=== PATIENT | female | born 1995 | race Hispanic/Latino ===

== ENCOUNTER 2022-05-20 00:23 | Inpatient (IN) | payer OTHER ==
[~2022-05-20] VITALS: Ht 165.1 cm; Wt 88.5 kg
[2022-05-20] MEDS: LACTATED RINGERS 1000ML 1,000 ML IV SCH ×2 (01:46→02:44)
[2022-05-20 02:21] LABS: APPEARANCE,URINE CLEAR (CLEAR); BILIRUBIN,URINE NEGATIVE (NEGATIVE); COLOR,URINE YELLOW (YELLOW); GLUCOSE, URINE (UA) NEGATIVE (NEGATIVE); KETONES,URINE NEGATIVE (NEGATIVE); LEUKOCYTE ESTERASE ,URINE TRACE (NEGATIVE); NITRATE,URINE NEGATIVE (NEGATIVE); OCCULT BLOOD,URINE TRACE-LYSED (NEGATIVE); PROTEIN,URINE NEGATIVE (NEGATIVE); UROBILINOGEN,URINE 0.2 mg/dL (0.2-1.0)
[2022-05-20 02:27] LABS: AMPHET/METH SCREEN,URINE NEGATIVE (NEGATIVE); BARBITURATE SCREEN, URINE NEGATIVE (NEGATIVE); BENZODIAZEPINES SCREEN,URINE NEGATIVE (NEGATIVE); CANNABINOID SCREEN,URINE NEGATIVE (NEGATIVE); COCAINE SCREEN,URINE NEGATIVE (NEGATIVE); PHENCYCLIDINE SCREEN,URINE NEGATIVE (NEGATIVE)
[2022-05-20 02:41] LABS: BACTERIA,URINE Rare /HPF (None Seen); RBC,URINE 0-1 /HPF (0-1); SQUAMOUS EPITHELIAL CELL,UR 0-2 /HPF (0-2)
[2022-05-20 03:31] LABS: HEMATOCRIT 33.8 % (36-48); MEAN CORPUSCULAR HEMOGLOBIN 27.3 pg (27.0-33.0); MEAN CORPUSCULAR HGB CONC 33.4 g/dL (32.0-36.0); MEAN CORPUSCULAR VOLUME 81.6 fL (79-99); RED BLOOD CELL COUNT(AUTO) 4.14 MIL/uL (4.00-5.50); RED CELL DISTRIBUTION WIDTH 14.4 % (11.0-15.5); WHITE BLOOD COUNT (AUTO) 9.3 K/uL (4.8-10.8)
[2022-05-20 06:36] VITALS: BP 133/72
[2022-05-20] MEDS ORDERED: FOLI5VIA2 IJ (06:36)
[2022-05-20] MEDS ORDERED: OXYTOCIN-LR 20 UNITS/1000 ML 1,000 ML IV SCH (08:30)
[2022-05-20] MEDS ORDERED: LACTATED RINGERS 1000ML 1,000 ML IV PRN (08:30)
[2022-05-20] MEDS ORDERED: NALOXONE HCL 0.4 MG/1 ML ML IV PRN (09:00)
[2022-05-20] MEDS ORDERED: BUTORPHANOL TARTRATE 2 MG/ML IVP PRN (09:00)
[2022-05-20] MEDS ORDERED: LACTATED RINGERS 500 ML 500 ML IV PRN (09:00)
[2022-05-20] MEDS ORDERED: EPHEDRINE SULFATE 50 MG/ML AMPULE IVP PRN ×2 (09:00→17:00)
[2022-05-20] MEDS: CLINDAMYCIN IVPB 600MG/50ML 50 ML IV SCH ×2 (09:34→21:00)
[2022-05-20 10:13] LABS: RAPID PLASMA REAGIN NONREACTIVE (NONREACTIVE)
[2022-05-20] MEDS ORDERED: CLINDAMYCIN IVPB 900MG/50ML 50 ML IV PRN (13:30)
[2022-05-20] MEDS ORDERED: GENTAMICIN SULFATE 240 MG in 0.9%NACL 100ML 100 ML IV PRN (13:30)
[2022-05-20] MEDS ORDERED: CALDOLOR 800MG+NS 250ML 250 ML IV PRN (13:30)
[2022-05-20] MEDS ORDERED: GENTAMICIN 80 MG/NS 100 ML PB 100 ML IV ONE (14:19)
[2022-05-20] MEDS ORDERED: MORPHINE PF 100MG/10ML AMP IV ONE (14:37)
[2022-05-20] MEDS ORDERED: EPHEDRINE SULFATE 50 MG/ML AMPULE ONE (14:54)
[2022-05-20] MEDS ORDERED: OXYTOCIN 10 USP UNITS/ML ONE ×2 (14:59→15:18)
[2022-05-20] MEDS ORDERED: METHYLERGONOVINE MALEATE 0.2 MG/1 ML ML ONE (15:01)
[2022-05-20] MEDS ORDERED: 0.9%NACL 10ML VIAL IVP PRN ×2 (16:00→17:30)
[2022-05-20] MEDS ORDERED: MEPERIDINE-PF 75 MG/ML SYG IM PRN ×2 (16:00→17:30)
[2022-05-20] MEDS ORDERED: ACETAMINOPHEN WITH CODEINE 1 TAB TAB PO PRN (16:00)
[2022-05-20] MEDS ORDERED: ACETAMINOPHEN 500 MG TABLET PO PRN (16:00)
[2022-05-20] MEDS ORDERED: DIPH,PERTUSS(ACELL),TET VAC/PF 0.5 ML VIAL IM SCH (16:00)
[2022-05-20] MEDS ORDERED: LANOLIN 30GM OINTMENT TP PRN (16:00)
[2022-05-20] MEDS ORDERED: PROMETHAZINE HCL 25 MG/ML 1ML AMPULE IM PRN ×2 (16:00→17:30)
[2022-05-20] MEDS ORDERED: HYDROCODONE/ACETAMINOPHEN 5/325 MG TAB PO PRN (16:00)
[2022-05-20] MEDS ORDERED: MEASLES/MUMPS/RUBELLA VACCINE, LIVE 0.5 ML/VIAL SQ SCH (16:00)
[2022-05-20] MEDS ORDERED: BISACODYL 10 MG SUPP.RECT RC PRN (16:00)
[2022-05-20] MEDS ORDERED: OXYTOCIN-LR 20 UNITS/1000 ML 1,000 ML IV PRN ×2 (16:00→17:30)
[2022-05-20] MEDS ORDERED: DIPHENHYDRAMINE HCL 25 MG CAPSULE PO PRN (16:00)
[2022-05-20] MEDS ORDERED: DiphenhydrAMINE HCL 50 MG/ML VIAL IVP PRN (17:00)
[2022-05-20] MEDS ORDERED: ONDANSETRON 4MG INJ IVP PRN (17:00)
[2022-05-20] MEDS ORDERED: NALOXONE HCL 0.4 MG/1 ML ML IVP PRN ×3 (17:00)
[2022-05-20] MEDS ORDERED: DEXTROSE 5 %-0.45 % NACL 1,000 ML IV PRN (17:30)
[2022-05-20 17:45] VITALS: BP 135/76
[2022-05-20 19:15] VITALS: BP 134/73
[2022-05-20] MEDS: DOCUSATE SODIUM 100 MG CAP PO SCH (20:58)
[2022-05-20] MEDS: SIMETHICONE 80 MG TAB.CHEW PO PRN (20:58)
[2022-05-20 22:44] VITALS: BP 115/71
[2022-05-20] MEDS: DEXTROSE 5 %-0.45 % NACL 1,000 ML IV PRN (22:46)
[2022-05-21] MEDS: CALDOLOR 800MG+NS 250ML 250 ML IV SCH ×4 (00:13→09:30)
[2022-05-21 02:58] VITALS: BP 109/58
[2022-05-21] MEDS: DEXTROSE 5 %-0.45 % NACL 1,000 ML IV PRN (06:04)
[2022-05-21 06:51] VITALS: BP 105/57
[2022-05-21] MEDS: IBUPROFEN 800 MG TAB PO SCH ×4 (08:00→18:33)
[2022-05-21] MEDS: DOCUSATE SODIUM 100 MG CAP PO SCH ×2 (08:25→20:21)
[2022-05-21] MEDS: SIMETHICONE 80 MG TAB.CHEW PO PRN ×2 (08:25→18:33)
[2022-05-21] MEDS: LIDOCAINE 5% TOPICAL PATCH TP SCH (08:28)
[2022-05-21 11:40] VITALS: BP 115/60
[2022-05-21 16:15] VITALS: BP 109/66
[2022-05-21 19:43] VITALS: BP 123/74
[2022-05-21 22:45] VITALS: BP 115/67
[2022-05-22] MEDS: IBUPROFEN 800 MG TAB PO SCH ×3 (01:55→09:30)
[2022-05-22 03:04] VITALS: BP 125/77
[2022-05-22 07:19] VITALS: BP 128/77
[2022-05-22] MEDS: SIMETHICONE 80 MG TAB.CHEW PO PRN (07:56)
[2022-05-22] MEDS: DOCUSATE SODIUM 100 MG CAP PO SCH (07:57)
[2022-05-22 11:02] VITALS: BP 115/53
[2022-05-22] MEDS: LIDOCAINE 5% TOPICAL PATCH TP SCH (13:51)
[2022-05-22 16:09] LABS: OPIATES SCREEN URINE Negative ng/mL (Cutoff=300)
== END 2022-05-22 14:00 | disposition home or self-care (01) | DRG 788 ==
LOC: EDH 00:23 → OBSVTOIN 00:24 → LDH 00:24 → WSH 17:45
PROVIDERS: ADMIT Obstetrics & Gynecology; ATTEND Obstetrics & Gynecology
PROC: 3E0234Z Introduction of Serum, Toxoid and Vaccine into Muscle, Percutaneous Approach (ICD-10-PCS; 2022-05-20)
PROC: 10D00Z1 Extraction of Products of Conception, Low, Open Approach (ICD-10-PCS; principal; 2022-05-20 14:29)
DX: O62.2 Other uterine inertia (principal); O41.00X0 Oligohydramnios, unspecified trimester, not applicable or unspecified; O69.81X0 Labor and delivery complicated by cord around neck, without compression, not applicable or unspecified; O99.214 Obesity complicating childbirth; Z37.0 Single live birth; Z3A.39 39 weeks gestation of pregnancy; Z23 Encounter for immunization
CPT/HCPCS: 36415; 76805; 80305; 81001; 85027; 86592; 86701; 86850; 86900; 86901; 87340; 87390; 90707; 90715; A4344; G0378; J1580; J1741; J2210; J2274; J2590; J3490; J7120

== ENCOUNTER 2023-08-02 06:27 | Inpatient (IN) | payer MEDICAID, OTHER ==
[~2023-08-02] VITALS: Ht 170.2 cm; Wt 89.8 kg
[~2023-08-02 06:27] MED LIST: FOLI5VIA2 IJ
[2023-08-02] MEDS ORDERED: LACTATED RINGERS 1000ML IV SCH (07:00)
[2023-08-02 07:19] LABS: AMPHET/METH SCREEN,URINE NEGATIVE (NEGATIVE); BARBITURATE SCREEN, URINE NEGATIVE (NEGATIVE); BENZODIAZEPINES SCREEN,URINE NEGATIVE (NEGATIVE); CANNABINOID SCREEN,URINE NEGATIVE (NEGATIVE); COCAINE SCREEN,URINE NEGATIVE (NEGATIVE); OPIATE SCREEN,URINE NEGATIVE (NEGATIVE); PHENCYCLIDINE SCREEN,URINE NEGATIVE (NEGATIVE)
[2023-08-02 07:38] LABS: APPEARANCE,URINE CLEAR (CLEAR); BILIRUBIN,URINE NEGATIVE (NEGATIVE); COLOR,URINE LIGHT-YELLOW (YELLOW); GLUCOSE, URINE (UA) NEGATIVE (NEGATIVE); KETONES,URINE NEGATIVE (NEGATIVE); LEUKOCYTE ESTERASE ,URINE 250 Leu/uL (NEGATIVE); NITRATE,URINE NEGATIVE (NEGATIVE); OCCULT BLOOD,URINE NEGATIVE (NEGATIVE); PH,URINE 6.5 (5.0-8.0); PROTEIN,URINE NEGATIVE (NEGATIVE); UROBILINOGEN,URINE 0.2 mg/dL (0.2-1.0)
[2023-08-02 07:41] LABS: ADD UA MICROSCOPIC YES
[2023-08-02 07:55] LABS: MUCUS,URINE RARE LPF (None Seen); SQUAMOUS EPITHELIAL CELL,UR RARE /HPF (0-2); WBC,URINE 0-1 /HPF (0-1)
[2023-08-02] MEDS ORDERED: LACTATED RINGERS 1000ML 1,000 ML IV SCH (08:00)
[2023-08-02] MEDS ORDERED: CLINDAMYCIN IVPB 900MG/50ML 50 ML IV PRN (08:00)
[2023-08-02] MEDS ORDERED: GENTAMICIN SULFATE 240 MG in 0.9%NACL 100ML 100 ML IV PRN (08:00)
[2023-08-02 08:02] LABS: HEMATOCRIT 31.1 % (36-48); MEAN CORPUSCULAR HEMOGLOBIN 24.8 pg (27.0-33.0); MEAN CORPUSCULAR HGB CONC 32.2 g/dL (32.0-36.0); MEAN CORPUSCULAR VOLUME 77.2 fL (79-99); PLATELET COUNT (AUTO) 163 K/uL (130-400); RED BLOOD CELL COUNT(AUTO) 4.03 MIL/uL (4.00-5.50); RED CELL DISTRIBUTION WIDTH 15.1 % (11.0-15.5); WHITE BLOOD COUNT (AUTO) 8.5 K/uL (4.8-10.8)
[2023-08-02 09:18] LABS: HIV 1&2 ANTIBODY Non-Reactive (Negative); HIV-1 p24 Antigen Non-Reactive (Negative)
[2023-08-02 13:20] LABS: RAPID PLASMA REAGIN NONREACTIVE (NONREACTIVE)
[2023-08-02] MEDS ORDERED: OXYTOCIN 10 USP UNITS/ML ONE ×2 (17:13→18:06)
[2023-08-02] MEDS ORDERED: ONDANSETRON 4MG INJ ONE (17:13)
[2023-08-02] MEDS ORDERED: OXYTOCIN 10 UNIT/1ML 10ML VIAL ONE (17:13)
[2023-08-02] MEDS ORDERED: MORPHINE PF 100MG/10ML AMP IV ONE (17:13)
[2023-08-02] MEDS ORDERED: DEXAMETHASONE SOD PHOSPHATE 10MG/ML 1ML VIAL ONE (17:13)
[2023-08-02] MEDS ORDERED: FENTANYL CITRATE PF 50 MCG/1 ML 2ML VIAL ONE (17:14)
[2023-08-02] MEDS ORDERED: EPHEDRINE SULFATE 50 MG/ML AMPULE ONE (17:51)
[2023-08-02] MEDS ORDERED: CALDOLOR 800MG+NS 250ML 250 ML IV ONE (18:26)
[2023-08-02] MEDS ORDERED: 0.9%NACL 10ML VIAL IVP PRN (18:30)
[2023-08-02] MEDS ORDERED: MEPERIDINE-PF 75 MG/ML SYG IM PRN (18:30)
[2023-08-02] MEDS ORDERED: PROMETHAZINE HCL 25 MG/ML 1ML AMPULE IM PRN (18:30)
[2023-08-02] MEDS ORDERED: OXYTOCIN-LR 30 UNITS/500ML 500 ML IV PRN (18:30)
[2023-08-02] MEDS ORDERED: DEXTROSE 5 %-0.45 % NACL 1,000 ML IV PRN (18:30)
[2023-08-02 20:55] VITALS: BP 116/64; PULSE 68; RESP 20
[2023-08-02] MEDS ORDERED: HYDROCODONE/ACETAMINOPHEN 5/325 MG TAB PO PRN (21:00)
[2023-08-02] MEDS ORDERED: LANOLIN 30GM OINTMENT TP PRN (21:00)
[2023-08-02] MEDS ORDERED: BISACODYL 10 MG SUPP.RECT RC PRN (21:00)
[2023-08-02] MEDS: DOCUSATE SODIUM 100 MG CAP PO SCH (21:00)
[2023-08-02] MEDS ORDERED: ACETAMINOPHEN 500 MG TABLET PO PRN (21:00)
[2023-08-02 23:50] VITALS: BP 121/61; PULSE 67; RESP 20
[2023-08-03] MEDS: ACETAMINOPHEN WITH CODEINE 1 TAB TAB PO PRN (00:43)
[2023-08-03] MEDS: CALDOLOR 800MG+NS 250ML 250 ML IV SCH ×2 (02:24→09:39)
[2023-08-03 03:00] VITALS: BP 111/55; PULSE 61; RESP 20
[2023-08-03 06:54] LABS: HEMATOCRIT 26.7 % (36-48); MEAN CORPUSCULAR HEMOGLOBIN 24.5 pg (27.0-33.0); MEAN CORPUSCULAR HGB CONC 31.5 g/dL (32.0-36.0); MEAN CORPUSCULAR VOLUME 77.8 fL (79-99); RED BLOOD CELL COUNT(AUTO) 3.43 MIL/uL (4.00-5.50); RED CELL DISTRIBUTION WIDTH 14.6 % (11.0-15.5); WHITE BLOOD COUNT (AUTO) 14.8 K/uL (4.8-10.8)
[2023-08-03 07:40] VITALS: BP 107/69; PULSE 59; RESP 20
[2023-08-03] MEDS: DOCUSATE SODIUM 100 MG CAP PO SCH ×2 (08:42→20:29)
[2023-08-03] MEDS: SIMETHICONE 80 MG TAB.CHEW PO PRN ×2 (08:42→20:29)
[2023-08-03 11:47] VITALS: BP 110/56; PULSE 57; RESP 18
[2023-08-03 16:14] VITALS: BP 100/54; PULSE 53; RESP 18
[2023-08-03] MEDS: IBUPROFEN 600 MG TABLET PO PRN (16:53)
[2023-08-03 19:30] VITALS: BP 109/58; PULSE 69; RESP 20
[2023-08-03 23:15] VITALS: BP_SYST 103; BP_SYST 111; BP_DIAS 55; BP_DIAS 68; PULSE 58; PULSE 76; RESP 18
[2023-08-04 03:25] VITALS: BP 110/58; PULSE 66; RESP 20
[2023-08-04] MEDS: ACETAMINOPHEN WITH CODEINE 1 TAB TAB PO PRN (03:25)
[2023-08-04] MEDS: IBUPROFEN 600 MG TABLET PO PRN ×2 (06:35→12:37)
[2023-08-04 07:29] VITALS: BP 105/54; PULSE 64; RESP 18
[2023-08-04] MEDS: SIMETHICONE 80 MG TAB.CHEW PO PRN (09:45)
[2023-08-04] MEDS: DOCUSATE SODIUM 100 MG CAP PO SCH (09:45)
[2023-08-04 11:14] VITALS: BP 114/64; PULSE 63; RESP 18
[2023-08-04] MEDS ORDERED: FERR-72 PO (13:14)
[2023-08-04] MEDS ORDERED: ACET-2079 PO (13:15)
== END 2023-08-04 14:20 | disposition home or self-care (01) | DRG 788 ==
LOC: EDH 06:27 → LDH 06:48 → INTOOBSV 06:48 → OBSVTOIN 06:48 → WSH 20:40
PROVIDERS: ADMIT Obstetrics & Gynecology; ATTEND Obstetrics & Gynecology
PROC: 10D00Z1 Extraction of Products of Conception, Low, Open Approach (ICD-10-PCS; principal; 2023-08-02 17:00)
DX: O34.211 Maternal care for low transverse scar from previous cesarean delivery (principal); Z37.0 Single live birth; Z3A.38 38 weeks gestation of pregnancy
CPT/HCPCS: 36415; 59510; 80305; 81001; 85027; 86592; 86701; 86850; 86900; 86901; 87088; 87340; 87390; A4344; G0378; J1100; J1741; J2274; J2405; J2590; J3010; J3490; J7120; A4248; L0625

== ENCOUNTER 2023-11-11 01:14 | Inpatient (IN) | payer OTHER ==
[~2023-11-11] VITALS: Ht 170.2 cm; Wt 81.6 kg
[~2023-11-11 01:14] MED LIST changes: +ACET-2079 PO; +FERR-72 PO; -FOLI5VIA2 IJ
[2023-11-11] MEDS: ONDANSETRON ODT 4MG TAB SL ONE (01:25)
[2023-11-11 01:38] LABS: RAPID GROUP A STREP negative (NEGATIVE)
[2023-11-11 01:43] LABS: SARS-CoV-2, RNA, NAAT NEGATIVE SARS CoV-2 (NEGATIVE)
[2023-11-11 01:48] LABS: INFLUENZA TYPE A Negative For Type A (NEGATIVE); INFLUENZA TYPE B Negative For Type B (NEGATIVE)
[2023-11-11 02:09] LABS: BASOPHILS # (AUTO) 0.02 K/uL (0.00-0.20); BASOPHILS % (AUTO) 0.2 % (0.0-5.0); EOSINOPHILS # (AUTO) 0.02 K/uL (0.00-0.70); EOSINOPHILS % (AUTO) 0.2 % (0.0-8.0); HEMATOCRIT 41.7 % (36-48); IMMATURE GRANULOCYTE ABSOLUTE 0.04 K/uL (0-1); LYMPHOCYTES # (AUTO) 1.5 K/uL (1.0-4.8); LYMPHOCYTES % (AUTO) 13.4 % (21.0-51.0); MEAN CORPUSCULAR HEMOGLOBIN 22.1 pg (27.0-33.0); MEAN CORPUSCULAR HGB CONC 30.2 g/dL (32.0-36.0); MEAN CORPUSCULAR VOLUME 73.2 fL (79-99); MONOCYTES # (AUTO) 0.4 K/uL (0.1-1.0); MONOCYTES % (AUTO) 3.6 % (3.0-13.0); NEUTROPHILS # (AUTO) 9.3 K/uL (1.8-7.7); NEUTROPHILS % (AUTO) 82.2 % (40.0-77.0); PLATELET COUNT (AUTO) 229 K/uL (130-400); RED CELL DISTRIBUTION WIDTH 17.3 % (11.0-15.5); WHITE BLOOD COUNT (AUTO) 11.3 K/uL (4.8-10.8)
[2023-11-11 02:19] LABS: APPEARANCE,URINE TURBID (CLEAR); BILIRUBIN,URINE NEGATIVE (NEGATIVE); COLOR,URINE RED (YELLOW); GLUCOSE, URINE (UA) 100 mg/dL (NEGATIVE); KETONES,URINE >=80 mg/dL (NEGATIVE); LEUKOCYTE ESTERASE ,URINE MODERATE Leu/uL (NEGATIVE); NITRATE,URINE POSITIVE (NEGATIVE); OCCULT BLOOD,URINE LARGE (NEGATIVE); PH,URINE 6.5 (5.0-8.0); PROTEIN,URINE >=300 mg/dL (NEGATIVE)
[2023-11-11 02:20] LABS: CREATININE 0.8 mg/dL (0.5-1.5); POTASSIUM 3.8 mmol/L (3.5-5.1)
[2023-11-11 02:26] LABS: ALBUMIN 4.1 g/dL (3.5-5.0); BILIRUBIN,TOTAL 6.3 mg/dL (0.2-1.0); TOTAL PROTEIN, SERUM 7.7 g/dL (6.0-8.3)
[2023-11-11 02:31] LABS: ADD UA MICROSCOPIC YES
[2023-11-11 02:33] LABS: RBC,URINE TNTC /HPF (0-1)
[2023-11-11 02:35] LABS: WBC,URINE 51-100 /HPF (0-1)
[2023-11-11 02:36] LABS: BACTERIA,URINE Rare /HPF (None Seen); SQUAMOUS EPITHELIAL CELL,UR Few /HPF (0-2)
[2023-11-11 02:39] LABS: HCG,QUALITATIVE URINE NEGATIVE (NEGATIVE)
[2023-11-11] MEDS: HYDROMORPHONE 0.5 MG SYG (0.5MG/0.5ML) IVP ONE (03:21)
[2023-11-11] MEDS: LACTATED RINGERS 1000ML 1,000 ML IV ONE (03:21)
[2023-11-11] MEDS ORDERED: HYDROMORPHONE 1 MG INJ IV PRN (03:30)
[2023-11-11] MEDS ORDERED: MORPHINE 2 MG SYG IV PRN (03:30)
[2023-11-11] MEDS ORDERED: ACETAMINOPHEN 325 MG TAB PO PRN ×2 (03:30)
[2023-11-11 03:31] LABS: INR 0.94 (0.85-1.15); PROTHROMBIN TIME 10.9 SEC (9.6-11.6)
[2023-11-11 03:33] LABS: PARTIAL THROMBOPLASTIN TIME 26.6 SEC (26.3-35.5)
[2023-11-11 03:41] LABS: MAGNESIUM 2.1 mg/dL (1.80-2.40); PHOSPHORUS 3.2 mg/dL (2.5-4.9)
[2023-11-11] MEDS ORDERED: IOHEXOL-350 75 ML VIAL IV ONE (04:47)
[2023-11-11] MEDS: LEVOFLOXACIN 500 MG/D5W 100 ML 100 ML IV SCH (04:52)
[2023-11-11] MEDS: LACTATED RINGERS 1000ML 1,000 ML IV SCH (04:52)
[2023-11-11] MEDS: FAMOTIDINE 20MG VIAL IV SCH (10:20)
[2023-11-11] MEDS: ONDANSETRON 4MG INJ IV PRN (11:47)
[2023-11-11 17:00] VITALS: BP 117/78; PULSE 71; RESP 18
[2023-11-11 19:37] VITALS: O2SAT 98
[2023-11-11 20:00] VITALS: BP 116/69; PULSE 53; RESP 16
[2023-11-11] MEDS ORDERED: ACET-3673 PO (20:06)
[2023-11-12] VITALS (25 sets, daily range): BP systolic 107–142; BP diastolic 53–75; PULSE 51–90; RESP 16–20; O2SAT 98
[2023-11-12 07:42] LABS: BASOPHILS # (AUTO) 0.01 K/uL (0.00-0.20); BASOPHILS % (AUTO) 0.1 % (0.0-5.0); EOSINOPHILS # (AUTO) 0.02 K/uL (0.00-0.70); EOSINOPHILS % (AUTO) 0.2 % (0.0-8.0); HEMATOCRIT 34.4 % (36-48); IMMATURE GRANULOCYTE ABSOLUTE 0.07 K/uL (0-1); LYMPHOCYTES # (AUTO) 1.1 K/uL (1.0-4.8); MEAN CORPUSCULAR HEMOGLOBIN 22.5 pg (27.0-33.0); MEAN CORPUSCULAR HGB CONC 30.8 g/dL (32.0-36.0); MONOCYTES # (AUTO) 0.4 K/uL (0.1-1.0); MONOCYTES % (AUTO) 3.3 % (3.0-13.0); NEUTROPHILS # (AUTO) 10.9 K/uL (1.8-7.7); NEUTROPHILS % (AUTO) 86.8 % (40.0-77.0); PLATELET COUNT (AUTO) 182 K/uL (130-400); RED BLOOD CELL COUNT(AUTO) 4.71 MIL/uL (4.00-5.50); RED CELL DISTRIBUTION WIDTH 17.5 % (11.0-15.5); WHITE BLOOD COUNT (AUTO) 12.5 K/uL (4.8-10.8)
[2023-11-12 08:00] LABS: ALBUMIN 2.8 g/dL (3.5-5.0); BILIRUBIN,TOTAL 2.3 mg/dL (0.2-1.0); CREATININE 0.7 mg/dL (0.5-1.5); MAGNESIUM 1.7 mg/dL (1.80-2.40); TOTAL PROTEIN, SERUM 6.1 g/dL (6.0-8.3)
[2023-11-12] MEDS: INDOMETHACIN 100 MG SUPP.RECT RC ONE (08:00)
[2023-11-12] MEDS ORDERED: IOHEXOL-350 50ML VIAL IV ONE (08:09)
[2023-11-12] MEDS ORDERED: LIDOCAINE PF 100MG/5ML (2%) SYRINGE 5ML ONE (08:28)
[2023-11-12] MEDS ORDERED: SUCCINYLCHOLINE CHLORIDE 20 MG/ML 10 ML VIAL ONE (08:28)
[2023-11-12] MEDS ORDERED: PROPOFOL 10 MG/ML 20ML VIAL IV ONE (08:29)
[2023-11-12] MEDS ORDERED: FENTANYL CITRATE PF 50 MCG/1 ML 2ML VIAL ONE (08:29)
[2023-11-12] MEDS ORDERED: MIDAZOLAM HCL 1 MG/ML 2ML VIAL ONE (08:29)
[2023-11-12] MEDS ORDERED: KETAMINE 50MG/ML SYRINGE 50 MG/ML DISP.SYRIN ONE (08:29)
[2023-11-12] MEDS ORDERED: ROCURONIUM BROMIDE 10MG/1ML 5ML VL ONE (08:29)
[2023-11-12] MEDS ORDERED: GLUCAGON 1MG KIT 1 MG ML ONE (09:08)
[2023-11-12] MEDS: MAGNESIUM 2GM PREMIX 50ML 50 ML IV PRN (17:24)
[2023-11-12] MEDS: MAGNESIUM 2GM PREMIX 50ML 50 ML IV ONE (17:24)
[2023-11-13] VITALS (7 sets, daily range): BP systolic 100–124; BP diastolic 49–80; PULSE 67–91; RESP 16–18
[2023-11-13 04:13] LABS: BASOPHILS # (AUTO) 0.02 K/uL (0.00-0.20); BASOPHILS % (AUTO) 0.2 % (0.0-5.0); EOSINOPHILS # (AUTO) 0.17 K/uL (0.00-0.70); EOSINOPHILS % (AUTO) 1.4 % (0.0-8.0); HEMATOCRIT 29.6 % (36-48); IMMATURE GRANULOCYTE ABSOLUTE 0.07 K/uL (0-1); LYMPHOCYTES # (AUTO) 2.1 K/uL (1.0-4.8); LYMPHOCYTES % (AUTO) 17.4 % (21.0-51.0); MEAN CORPUSCULAR HEMOGLOBIN 22.5 pg (27.0-33.0); MEAN CORPUSCULAR HGB CONC 30.4 g/dL (32.0-36.0); MONOCYTES # (AUTO) 0.6 K/uL (0.1-1.0); NEUTROPHILS % (AUTO) 75.4 % (40.0-77.0); PLATELET COUNT (AUTO) 158 K/uL (130-400); RED CELL DISTRIBUTION WIDTH 17.6 % (11.0-15.5)
[2023-11-13 04:27] LABS: CREATININE 0.8 mg/dL (0.5-1.5)
[2023-11-13 04:41] LABS: PROTHROMBIN TIME 11.6 SEC (9.6-11.6)
[2023-11-14] VITALS (25 sets, daily range): BP systolic 11–128; BP diastolic 51–78; PULSE 56–99; RESP 14–18; O2SAT 100
[2023-11-14 04:27] LABS: HEMATOCRIT 29.3 % (36-48); MEAN CORPUSCULAR HEMOGLOBIN 22.3 pg (27.0-33.0); MEAN CORPUSCULAR VOLUME 74.2 fL (79-99); PLATELET COUNT (AUTO) 174 K/uL (130-400); RED BLOOD CELL COUNT(AUTO) 3.95 MIL/uL (4.00-5.50); RED CELL DISTRIBUTION WIDTH 17.8 % (11.0-15.5); WHITE BLOOD COUNT (AUTO) 11.9 K/uL (4.8-10.8)
[2023-11-14 04:41] LABS: CREATININE 0.7 mg/dL (0.5-1.5); POTASSIUM 3.9 mmol/L (3.5-5.1)
[2023-11-14 05:37] LABS: BASOPHILS # (AUTO) 0.01 K/uL (0.00-0.20); BASOPHILS % (AUTO) 0.1 % (0.0-5.0); EOSINOPHILS # (AUTO) 0.16 K/uL (0.00-0.70); EOSINOPHILS % (AUTO) 1.4 % (0.0-8.0); IMMATURE GRANULOCYTE ABSOLUTE 0.07 K/uL (0-1); LYMPHOCYTES # (AUTO) 1.6 K/uL (1.0-4.8); LYMPHOCYTES % (AUTO) 13.7 % (21.0-51.0); MONOCYTES # (AUTO) 0.7 K/uL (0.1-1.0); MONOCYTES % (AUTO) 5.5 % (3.0-13.0); NEUTROPHILS # (AUTO) 9.2 K/uL (1.8-7.7); NEUTROPHILS % (AUTO) 78.7 % (40.0-77.0)
[2023-11-14 07:51] LABS: MAGNESIUM 1.8 mg/dL (1.80-2.40)
[2023-11-14] MEDS ORDERED: LACTATED RINGERS 1000ML 1,000 ML IV ONE (11:57)
[2023-11-14] MEDS ORDERED: SUCCINYLCHOLINE CHLORIDE 20 MG/ML 10 ML VIAL ONE (13:49)
[2023-11-14] MEDS ORDERED: LIDOCAINE PF 100MG/5ML (2%) SYRINGE 5ML ONE (13:49)
[2023-11-14] MEDS ORDERED: ROCURONIUM BROMIDE 10MG/1ML 5ML VL ONE (13:50)
[2023-11-14] MEDS ORDERED: DEXAMETHASONE SOD PHOSPHATE 10MG/ML 1ML VIAL ONE ×2 (13:50→18:09)
[2023-11-14] MEDS ORDERED: FENTANYL CITRATE PF 50 MCG/1 ML 2ML VIAL ONE ×3 (13:50→19:42)
[2023-11-14] MEDS ORDERED: ONDANSETRON 4MG INJ ONE ×2 (13:50→18:04)
[2023-11-14] MEDS ORDERED: MIDAZOLAM HCL 1 MG/ML 2ML VIAL ONE (13:50)
[2023-11-14] MEDS ORDERED: PROPOFOL 10 MG/ML 20ML VIAL IV ONE (13:50)
[2023-11-14] MEDS ORDERED: NEOSTIGMINE METHYLSULFATE 1MG/ML IV ONE ×2 (13:50→19:39)
[2023-11-14] MEDS ORDERED: GLYCOPYRROLATE 0.2 MG/ML 5 ML VIAL ONE ×2 (13:50→19:39)
[2023-11-14] MEDS: INDOCYANINE GREEN 25 MG VIAL IJ ONE (18:10)
[2023-11-14] MEDS: BUPIVACAINE/PF 0.25% 30ML VIAL IJ ONE (19:35)
[2023-11-14] MEDS: LIDOCAINE HCL 1% MDV 50ML VIAL ONE (19:35)
[2023-11-15 00:14] VITALS: BP 108/70; PULSE 63; RESP 17
[2023-11-15 04:35] VITALS: BP 113/72; PULSE 50; RESP 18
[2023-11-15] MEDS ORDERED: MORPHINE 4 MG SYG IVP PRN (05:30)
[2023-11-15 05:35] LABS: BASOPHILS # (AUTO) 0.02 K/uL (0.00-0.20); BASOPHILS % (AUTO) 0.2 % (0.0-5.0); HEMATOCRIT 30.1 % (36-48); IMMATURE GRANULOCYTE ABSOLUTE 0.06 K/uL (0-1); LYMPHOCYTES # (AUTO) 0.7 K/uL (1.0-4.8); LYMPHOCYTES % (AUTO) 6.1 % (21.0-51.0); MEAN CORPUSCULAR HEMOGLOBIN 22.4 pg (27.0-33.0); MEAN CORPUSCULAR HGB CONC 30.2 g/dL (32.0-36.0); MEAN CORPUSCULAR VOLUME 74.1 fL (79-99); MONOCYTES # (AUTO) 0.1 K/uL (0.1-1.0); NEUTROPHILS # (AUTO) 10.4 K/uL (1.8-7.7); NEUTROPHILS % (AUTO) 92.2 % (40.0-77.0); PLATELET COUNT (AUTO) 210 K/uL (130-400); RED BLOOD CELL COUNT(AUTO) 4.06 MIL/uL (4.00-5.50); RED CELL DISTRIBUTION WIDTH 18.1 % (11.0-15.5); WHITE BLOOD COUNT (AUTO) 11.2 K/uL (4.8-10.8)
[2023-11-15 06:00] LABS: ALBUMIN 2.5 g/dL (3.5-5.0); BILIRUBIN,TOTAL 1.2 mg/dL (0.2-1.0); CREATININE 0.6 mg/dL (0.5-1.5); POTASSIUM 4.2 mmol/L (3.5-5.1); TOTAL PROTEIN, SERUM 6.7 g/dL (6.0-8.3)
[2023-11-15 08:10] VITALS: BP 105/64; PULSE 59; RESP 18
[2023-11-15] MEDS: SIMETHICONE 80 MG TAB.CHEW PO SCH (08:39)
[2023-11-15] MEDS: IBUPROFEN 800 MG TAB PO SCH (08:40)
[2023-11-15] MEDS: TRAMADOL HCL 50 MG TABLET PO SCH (08:40)
[2023-11-15 08:50] VITALS: O2SAT 98
[2023-11-15 12:01] VITALS: BP 127/73; PULSE 65; RESP 18
[2023-11-15 16:41] VITALS: BP 118/61; PULSE 71; RESP 18
== END 2023-11-15 16:40 | disposition home or self-care (01) | DRG 417 ==
LOC: EDH 01:14 → EDHIP 01:15 → WSH 16:05
PROVIDERS: ADMIT Internal Medicine; ATTEND Internal Medicine
PROC: 0F7D8DZ Dilation of Pancreatic Duct with Intraluminal Device, Via Natural or Artificial Opening Endoscopic (ICD-10-PCS; 2023-11-12)
PROC: 0FC98ZZ Extirpation of Matter from Common Bile Duct, Via Natural or Artificial Opening Endoscopic (ICD-10-PCS; 2023-11-12)
PROC: 8E0W4CZ Robotic Assisted Procedure of Trunk Region, Percutaneous Endoscopic Approach (ICD-10-PCS; 2023-11-14)
PROC: 0FT44ZZ Resection of Gallbladder, Percutaneous Endoscopic Approach (ICD-10-PCS; principal; 2023-11-14 18:21)
DX: K80.63 Calculus of gallbladder and bile duct with acute cholecystitis with obstruction (principal); K85.10 Biliary acute pancreatitis without necrosis or infection; N39.0 Urinary tract infection, site not specified; Z51.5 Encounter for palliative care; Z59.7 Insufficient social insurance and welfare support; Z75.3 Unavailability and inaccessibility of health-care facilities; Z20.822 Contact with and (suspected) exposure to COVID-19
CPT/HCPCS: 36415; 43262; 43264; 43274; 71045; 74177; 74181; 74330; 76705; 78227; 80048; 80053; 81001; 81025; 83605; 83690; 83735; 84100; 84145; 85025; 85610; 85730; 86850; 86900; 86901; 87040; 87088; 87635; 87804; 87880; 93005; A4606; A9537; C1769; C1773; C2617; G0378; J0330; J1100; J1170; J1610; J1956; J2001; J2250; J2405; J2704; J2710; J3010; J3475; J3490; J7030; J7120; Q9967; A4215; A4216; A4222; A4223; A4600; A4649; A4657; A4663; A4930; A6207; A7002; G0168; J0665; S8037